=== PATIENT | female | born 1985 | race Two or more races ===

== ENCOUNTER 2022-05-22 21:47 | Emergency (ER) | payer SELFPAY ==
[~2022-05-22] VITALS: Ht 157.5 cm; Wt 81.6 kg
--- NOTE | 2022-05-22 22:00 | NUR ---
BIB FAMILY FOR C/O , H/A AND NAUSEA.
[2022-05-22 22:03] VITALS: BP 142/93
--- NOTE | 2022-05-22 22:15 | NUR ---
AT BEDSIDE FOR EVAL.
[2022-05-22] MEDS ORDERED: PRED50TA PO (22:29)
[2022-05-22] MEDS ORDERED: CARI350T PO (22:29)
[2022-05-22] MEDS ORDERED: IBUP-1957 PO (22:29)
--- NOTE | 2022-05-22 22:40 | NUR ---
Patient discharged to home in stable condition. Written and verbal after care instructions given. Patient verbalizes understanding of instruction.
== END 2022-05-22 22:40 | disposition home or self-care (01) ==
LOC: ER 21:49
DX: M62.838 Other muscle spasm (principal); M54.12 Radiculopathy, cervical region; Z79.899 Other long term (current) drug therapy